=== PATIENT | male | born 1970 | race Caucasian/White ===

== ENCOUNTER 2019-07-10 16:01 | Inpatient (IN) ==
[2019-07-10] MEDS ORDERED: *HR* Dextrose 50 % in Water (Syg) 50 ML SYRINGE IVP PRN (21:21)
[2019-07-10] MEDS ORDERED: Dextrose Gel 15 GM/37.5 ML TUBE PO PRN ×2 (21:21)
[2019-07-10] MEDS ORDERED: D5% in Water 1,000 ML IVC PRN (21:21)
[2019-07-10] MEDS: Insulin LISPRO 300 UNITS/3 ML VIAL SQ SCH (22:53)
[2019-07-10] MEDS ORDERED: Acetaminophen 325 MG TABLET PO ONE (23:14)
[2019-07-11 08:38] LABS: INR 1.1; Prothrombin Time 12.8 Seconds (9.4-12.1)
[2019-07-11] MEDS ORDERED: Nicotine 2 MG GUM BC PRN (08:48)
[2019-07-11 08:55] LABS: Alanine Aminotransferase 4 Units/L (7-52); Albumin 4.1 g/dL (3.5-5.7); Albumin/Globulin Ratio 1.6 (1.1-2.2); Alkaline Phosphatase 57 Units/L (34-104); Aspartate Amino Transferase 9 Units/L (13-39); BUN/Creatinine Ratio 16 (6-26); Bilirubin,Total 0.6 mg/dL (0.3-1.0); Blood Urea Nitrogen 14 mg/dL (6-20); Calcium 9.1 mg/dL (8.6-10.3); Carbon Dioxide 25 mEq/L (23-29); Chloride 105 mEq/L (98-107); Chol/HDL Ratio 5.5 (0-4.9); Cholesterol 132 mg/dL (< 200); Globulin 2.5 g/dL (2.4-3.5); Glucose 146 mg/dL (70-105); HDL Cholesterol 24 mg/dL (40-59); LDL Cholesterol,Calculated 70 mg/dL (0-99); Osmolality,Calculated 293 (280-300); Potassium 3.6 mEq/L (3.5-5.1); Sodium 140 mEq/L (136-145); Total Protein 6.6 g/dL (6.4-8.9); Triglycerides 188 mg/dL (< 150); eGFR For African Americans > 60 (> 60); eGFR For Non-African Americans > 60 (> 60)
[2019-07-11] MEDS ORDERED: *HR* Heparin 5,000 UNIT/ML VIAL SQ SCH (09:00)
[2019-07-11] MEDS ORDERED: Nicotine 21 MG PATCH.TD24 TD SCH (09:00)
[2019-07-11] MEDS: Insulin LISPRO 300 UNITS/3 ML VIAL SQ SCH ×2 (09:39→12:41)
[2019-07-11 10:45] VITALS: BP 143/86
[2019-07-11 12:39] LABS: Estimated Average Glucose 151 mg/dl
[2019-07-11] MEDS ORDERED: Acetaminophen 325 MG TABLET PO PRN (12:44)
== END 2019-07-11 15:30 | disposition other institution (70) | DRG 45 ==
LOC: 2ANU 18:16 → INTOOBSV 18:16 → SUATTDRO 18:16
PROVIDERS: ADMIT Internal Medicine; ATTEND Internal Medicine